=== PATIENT | male | born 1995 | race Caucasian/White ===

== ENCOUNTER 2016-11-29 14:16 | Emergency (ER) ==
[2016-11-29 14:45] VITALS: BP 151/101; TEMP 98.3; BMI 28.1
[2016-11-29] MEDS ORDERED: TORADOL IM STA (14:55)
--- NOTE | 2016-11-29 15:01 | ED.PDOC ---
General ED Provider: Dr. SUPRIYA THOMPSON Chief Complaint: Back Pain Stated Complaint: BACK PAIN Time Seen by Physician: 14:17 Mode of Arrival: Walk-In Information Source: Patient Exam Limitations: No limitations Nursing and Triage Documentation Reviewed and Agree: Yes Review of Systems - Review Of Systems Constitutional: Reports: No symptoms Eyes: Reports: No symptoms Ears, Nose, Mouth, Throat: Reports: No symptoms Respiratory: Reports: No symptoms Cardiac: Reports: No symptoms GI: Reports: No symptoms : Reports: No symptoms Musculoskeletal: Reports: Back pain Skin: Reports: No symptoms Neurological: Reports: No symptoms Endocrine: Reports: No symptoms Hematologic/Lymphatic: Reports: No symptoms All Other Systems: Reviewed and Negative Past Medical History - Past Medical History Previously Healthy: Yes Endocrine: Reports: None Cardiovascular: Reports: None Respiratory: Reports: None Hematological: Reports: None Gastrointestinal: Reports: None Genitourinary: Reports: None Neuro/Psych: Reports: None Musculoskeletal: Reports: None Cancer: Reports: None - Surgical History General Surgical History: Reports: None - Family History Family History: Reports: None - Social History Smoking Status: Never smoker Hx Substance Use: No Alcohol Screening: None Physical Exam - Physical Exam Appearance: Well-appearing, No pain distress, Well-nourished Eyes: RICK, EOMI, Conjunctiva clear ENT: Ears normal, Nose normal, Oropharynx normal Respiratory: Airway patent, Breath sounds clear, Breath sounds equal, Respirations nonlabored Cardiovascular: RRR, Pulses normal, No rub, No murmur GI/: Soft, Nontender, No masses, Bowel sounds normal, No Organomegaly Musculoskeletal: Normal strength, ROM intact, No edema, No calf tenderness Skin: Warm, Dry, Normal color Neurological: Sensation intact, Motor intact, Reflexes intact, Cranial nerves intact, Alert, Oriented Psychiatric: Affect appropriate, Mood appropriate Interpretation - Radiology Interpretation Radiology Interpretation By: Radiologist Critical Care Note - Critical Care Note Total Time (mins): 0 Course - Course Orders, Labs, Meds: Orders Category Date Time Status Ketorolac Tromethamine [Toradol] MEDS 11/29/16 14:55 Stat 30 mg IM ONCE STA CT LUMBAR SPINE W/O CONTRAST Stat RADS 11/29/16 14:[address] THORACIC SPINE W/O CONTRAST Stat RADS 11/29/16 14:23 Ordered Medications Discontinued Medications Generic Name Dose Route Start Last Admin Trade Name Freq PRN Reason Stop Dose Admin Ketorolac Tromethamine 30 mg 11/29/16 14:55 Toradol IM 11/29/16 14:56 ONCE STA Vital Signs: Temp Pulse Resp BP Pulse Ox 11/29/16 14:17 98.3 F 100 H 16 151/101 H 97 Departure - Departure Time of Disposition: 15:02 Disposition: HOME SELF-CARE Discharge Problem: Backache Instructions: Back Pain (ED) Condition: Good Pt referred to PMD for follow-up: No Additional Instructions: Please call your Family Physician as soon as possible to schedule a follow-up appointment. Allergies/Adverse Reactions: Allergies No Known Allergies Allergy (Unverified 11/29/16 14:22) Home Medications: Ambulatory Orders 1 [No Reported Medications] 01/11/14
--- NOTE | 2016-11-29 15:34 | CT ---
EXAM: CT thoracic spine without contrast HISTORY: Back pain with no injury. COMPARISON: None TECHNIQUE: Serial axial images of the thoracic spine were obtained without contrast. These were re viewed in multiple planes. FINDINGS: There is no compression fracture or subluxation of the thoracic spine. The facets and pos terior processes are unremarkable. There is no lytic or blastic lesion. Mild leftward curvature of the lower thoracic spine is present. The soft tissues are unremarkable. There is a nonobstructing 0.2 cm left renal stone. Lungs demonstrate consolidation. IMPRESSION: 1. No acute compression fracture or subluxation of the thoracic spine. 2. Nonobstructing left renal stone.
--- NOTE | 2016-11-29 15:34 | CT ---
Exam: CT lumbar spine without contrast. Clinical indication: Low back pain. TECHNIQUE: Axial unenhanced CT images from the lower thoracic spine through the mid sacrum were obt ained followed by coronal and sagittal reformats. There are no prior studies available for comparison. Findings: There are five non-rib bearing lumbar vertebra. The alignment of the lumbar spine is within normal limits. There are concavities within the superior and inferior endplates of all the visualized vertebral bod ies without associated sclerosis. This is likely the patient has a normal morphology as they are sy mmetric throughout the visualized lumbar spine. This is less likely associate with sickle cell dise ase. The bony structures are otherwise normal. There are no fractures. There is some mild facet degenerative changes at the L4-L5 and L5 S1 levels. There is no evidence o f spinal stenosis or neural foraminal narrowing throughout the lumbar spine. There is a 0.2 cm nonobstructive stone within the superior pole of the left kidney. The remainder o f the visualized soft tissues are unremarkable. Impression: 1. No acute lumbar fracture. 2. No evidence of spinal stenosis or neural foraminal narrowing. 3. Homogeneous symmetric concavities within the superior and inferior endplates of all the visualiz ed vertebral bodies. This is likely the patient has a normal morphologic appearance and less likely what can be seen with multiple bony infarcts of sickle cell disease. If the patient does not have sickle cell anemia and then this is his normal morphologic appearance. 4. Mild facet degenerative changes at the L4-L5 and L5-S1 levels.
== END 2016-11-29 15:44 | disposition home or self-care (01) ==
LOC: ED 14:16
DX: M54.9 Dorsalgia, unspecified (principal)
CPT/HCPCS: 96372; 99283